=== PATIENT | male | born 1985 | race Two or more races ===

== ENCOUNTER 2024-01-26 21:48 | Emergency (ER) | payer MEDICAID, OTHER ==
[~2024-01-26] VITALS: Ht 172.7 cm; Wt 100.0 kg
--- NOTE | 2024-01-26 22:27 | ED.PDOC ---
Psychiatric HPI Comments 38-year-old male who came to ER for abdominal pain. Patient states he has been having abdominal pain for the entire day. Patient had an argument with his earlier, and at about 7:00 p.m. he intentionally took handfuls of cough, cold, throat medications, along with handful of unrecalled blood pressure medications. Since then, abdominal pain appears to worsen. Denies any nausea or vomiting. Patient is a very poor historian. He however denies being suicidal, states that he just wants to harm himself. Denies any previous history of suicide attempts Chief Complaint: Abdominal pain Time Seen by MD: 22:25 Reviewed Notes: Nurses Notes Mode of Arrival: Ambulatory Severity: Unable to Care for Self, Unable to Control Self Severity of Pain: Moderate Severity of Mental Status: Moderate Severity of Symptoms: Moderate Timing: Hours Duration: Since onset Presents with: Depression, Anxiety, Unclear Thinking, Bizarre Behavior, Suicidal Ideation Attempt: Ingestion Ingestion: Intentional, Multiple, Ingestion Observed, Drug(s) Ingested (Unknown), Amount Ingested (Unknown) Circumstance: Medical Clearance Stressors: Family, Relationships History of: None Associated signs and symptoms: Depression, Anxiety, Confusion Past Medical History PAST MEDICAL HISTORY: HTN Surgical History: Denies all surgeries Family History Family History: Reviewed,noncontributory to illness Social History Smoker: Non-Smoker Alcohol: Denies ETOH Use Drugs: Denies Drug Use Lives In: Home Constitutional: denies: chills, diaphoresis, fatigue, fever, malaise, sweats, weakness, others EENTM: denies: blurred vision, double vision, ear bleeding, ear discharge, ear drainage, ear pain, ear ringing, eye pain, eye redness, hearing loss, mouth pain, mouth swelling, nasal discharge, nose bleeding, nose congestion, nose pain, photophobia, tearing, throat pain, throat swelling, voice changes, others Respiratory: denies: cough, hemoptysis, orthopnea, SOB at rest, shortness of breath, SOB with excertion, stridor, wheezing, others Cardiovascular: denies: chest pain, dizzy spells, diaphoresis, Dyspnea on exertion, edema, irregular heart beat, left arm pain, lightheadedness, palpitations, PND, syncope, others Gastrointestinal: reports: abdominal pain; denies: abdomen distended, blood streaked bowels, constipated, diarrhea, dysphagia, difficulty swallowing, hematemesis, melena, nausea, poor appetite, poor fluid intake, rectal bleeding, rectal pain, vomiting, others Genitourinary: denies: burning, dysuria, flank pain, frequency, hematuria, incontinence, penile discharge, penile sore, pain, testicle pain, testicle swelling, urgency, others Neurological: denies: dizziness, fainting, headache, left sided numbness, left sided weakness, numbness, paresthesia, pre-existing deficit, right sided numbness, right sided weakness, seizure, speech problems, tingling, tremors, weakness, others Musculoskeletal: denies: back pain, gout, joint pain, joint swelling, muscle pain, muscle stiffness, neck pain, others Integumetry: denies: bruises, change in color, change in hair/nails, dryness, laceration, lesions, lumps, rash, wounds, others Allergic/Immunocompromised: denies: Difficulty Healing, Frequent Infections, Hives, Itching, others Hematologic/Lymphatic: denies: anemia, blood clots, easy bleeding, easy bruising, swollen glands, others Endocrine: denies: excessive hunger, excessive sweating, excessive thirst, excessive urination, flushing, intolerance to cold, intolerance to heat, unexplained weight gain, unexplained weight loss, others Psychiatric: reports: anxiety; denies: bipolar disorder, depression, hopeless, panic disorder, schizophrenia, sleepless, suicidal, others Physical Exam General Appearance: No Apparent Distress, Normal HEENT: Normal ENT Inspection, Pharynx Normal, TMs Normal Neck: Full Range of Motion, Non-Tender, Normal, Normal Inspection Respiratory: Chest Non-Tender, Lungs Clear, No Accessory Muscle Use, No Respi ratory Distress, Normal Breath Sounds Cardiovascular: No Edema, No JVD, No Murmur, No Gallop, Normal Peripheral Pulses, Regular Rate/Rhythm Breast Exam: Deferred Gastrointestinal: No Organomegaly, Non Tender, No Pulsatile Mass, Normal Bowel Sounds, Soft Genitalia: Deferred Pelvic: Deferred Rectal: Deferred Extremities: No calf tenderness, Normal capillary refill, Normal inspection, Normal range of motion, Non-tender, No pedal edema Musculoskeletal : Apperance: Normal 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 Was a procedure done?: No Psych Differential Dx OD Differential Dx: Anxiety, Conversion Disorder, Depression, Drug Overdose, Intentional, Hallucinations, Panic Disorder, Personality Disorder, Suicidal Attempt, Suicidal Gesture X-Ray, Labs, Meds, VS Vital Signs Date Time Temp Pulse Resp B/P (MAP) Pulse Ox O2 Delivery O2 Flow Rate FiO2 01/27/24 01:22 90 01/26/24 23:46 98.3 91 18 102/52 (69) 98 98.3 01/26/24 23:42 91 01/26/24 22:22 120 01/26/24 22:05 97.6 119 18 118/80 (93) 97 Lab Test 01/27/24 02:20 01/26/24 22:39 01/26/24 22:31 01/26/24 22:05 Range/Units Sodium Level 139 139 136-145 mmol/L Potassium Level 4.2 3.8 3.5-5.1 mmol/L Chloride Level 101 101 98-107 mmol/L Carbon Dioxide Level 31 35 H 20-31 mmol/L Anion Gap 7 3 L 5-15 Blood Urea Nitrogen 18 16 9-23 mg/dL Creatinine 1.70 H 1.39 H 0.700-1.30 mg/dL Glomerular Filtration Rate Calc 52 66 >90 mL/min BUN/Creatinine Ratio 10.6 11.5 10.0-20.0 Serum Glucose 145 H 134 H 74-106 mg/dL Calcium Level 9.9 9.7 8.7-10.4 mg/dL POC Glucose 122 H 70-106 mg/dl White Blood Count 9.2 4.4-10.8 10^3/uL Red Blood Count 6.05 H 4.5-5.90 10^6/uL Hemoglobin 19.3 H 13.5-17.5 g/dL Hematocrit 55.7 H 41.0-53.0 % Mean Corpuscular Volume 92.1 80.0-100.0 fL Mean Corpuscular Hemoglobin 31.9 28.0-32.0 pg Mean Corpuscular Hemoglobin Concent 34.7 32.0-36.0 g/dL Red Cell Distribution Width 13.1 11.8-14.3 % Platelet Count 199 140-450 10^3/uL Mean Platelet Volume 7.6 6.9-10.8 fL Neutrophils (%) (Auto) 66.3 37.0-80.0 % Lymphocytes (%) (Auto) 16.0 10.0-50.0 % Monocytes (%) (Auto) 15.7 H 0.0-12.0 % Eosinophils (%) (Auto) 1.6 0.0-7.0 % Basophils (%) (Auto) 0.4 0.0-2.0 % Neutrophils # (Auto) 6.1 1.6-8.6 10 ^3/uL Lymphocytes # (Auto) 1.5 0.4-5.4 10 ^3/uL Monocytes # (Auto) 1.4 H 0-1.3 10 ^3/uL Eosinophils # (Auto) 0.1 0-0.8 10 ^3/uL Basophils # (Auto) 0 0-0.2 10 ^3/uL Nucleated Red Blood Cells 0.1 % Salicylates Level < 3.0 -30 mg/dL Acetaminophen Level 4.0 L 10.0-20.0 UG/ML Plasma/Serum Blood Alcohol 5.0 <10 mg/dL Urine Color Yellow Yellow Urine Clarity Turbid H Clear Urine pH 5.5 5.0-9.0 Urine Specific [place] 1.029 1.001-1.035 Urine Protein 1+ H Negative Urine Ketones 1+ H Negative Urine Blood Trace H Negative /uL Urine Nitrite Negative Negative Urine Bilirubin Negative Negative Urine Urobilinogen Normal Negative mg/dL Urine Leukocyte Esterase Negative Negative /uL Urine RBC 2 0 - 3 /hpf Urine WBC 49 0 - 3 /hpf Urine Squamous Epithelial Cells Few <5 /hpf Urine Bacteria Few H None Seen /hpf Urine Hyaline Casts Many 0 - 2 /lpf Urine Granular Casts Mod 0 /lpf Urine Mucus Few None Seen Urine Glucose Normal Normal mg/dL Urine Opiates Screen Neg NEGATIVE Urine Fentanyl Screen Pending Urine Barbiturates Screen Neg NEGATIVE Urine Phencyclidine Screen Neg NEGATIVE Urine Amphetamines Screen Neg NEGATIVE Urine Benzodiazepines Screen Neg NEGATIVE Urine Cocaine Screen Neg NEGATIVE Urine Cannabinoids Screen Neg NEGATIVE Time of 1ST Reevaluation: 22:17 Reevaluation 1ST: Unchanged Patient Education/Counseling: Diagnosis, Treatment Family Education/Counseling: Diagnosis, Treatment Departure 1 Departure Time of Disposition: 05:54 (Patient with an overdose attempt. He will go voluntarily to a psychiatric facility. Ligament for psychiatric placement.) Impression: Primary Impression: Suicide attempt by drug overdose Additional Impression: Depression Qualified Codes: F32.A - Depression, unspecified Disposition: 30 STILL A PATIENT Condition: Serious Critical Care Note Critical Care Time?: Yes (35 min-critical care time only) Stability Stability form required: No Heart Score Heart Score: Heart Score Response (Comments) Value History N/A 0 EKG N/A 0 Age N/A 0 Risk Factors N/A 0 Troponin N/A 0 Total 0 I personally scribed for MARIO PAGE MD ([email or web address]) on 01/26/24 at 22:27. Electronically submitted by Abe Gregg ([facility] MARIO PAGE MD Jan 26, 2024 22:27
[2024-01-26 22:48] LABS: Basophils # (auto) 0 10 ^3/uL (0-0.2); Lymphocytes # (auto) 1.5 10 ^3/uL (0.4-5.4); Monocytes # (auto) 1.4 10 ^3/uL (0-1.3); Red Cell Distribution Width 13.1 % (11.8-14.3)
[2024-01-26 22:50] LABS: Basophils % (auto) 0.4 % (0.0-2.0); Eosinophils # (auto) 0.1 10 ^3/uL (0-0.8); Eosinophils % (auto) 1.6 % (0.0-7.0); Hematocrit 55.7 % (41.0-53.0); Hemoglobin 19.3 g/dL (13.5-17.5); Mean Corpuscular Hemoglobin 31.9 pg (28.0-32.0); Mean Corpuscular Hgb Conc. 34.7 g/dL (32.0-36.0); Mean Corpuscular Volume 92.1 fL (80.0-100.0); Monocytes % (auto) 15.7 % (0.0-12.0); Neutrophils # (auto) 6.1 10 ^3/uL (1.6-8.6); Neutrophils % (auto) 66.3 % (37.0-80.0); Nucleated Red Blood Cells % 0.1 %; Platelet Count (auto) 199 10^3/uL (140-450); Red Blood Cells 6.05 10^6/uL (4.5-5.90); White Blood Cell 9.2 10^3/uL (4.4-10.8)
[2024-01-26 22:53] LABS: Chloride 101 mmol/L (98-107); Potassium 3.8 mmol/L (3.5-5.1); Sodium 139 mmol/L (136-145)
[2024-01-26 22:54] LABS: Anion Gap 3 (5-15); Calcium 9.7 mg/dL (8.7-10.4)
[2024-01-26 22:59] LABS: BUN/Creatinine Ratio 11.5 (10.0-20.0); Blood Urea Nitrogen 16 mg/dL (9-23); Carbon Dioxide 35 mmol/L (20-31)
[2024-01-26 23:26] LABS: Glucose 134 mg/dL (74-106)
[2024-01-27 01:31] LABS: Salicylate < 3.0 mg/dL (-30)
[2024-01-27 03:21] LABS: Chloride 101 mmol/L (98-107); Potassium 4.2 mmol/L (3.5-5.1); Sodium 139 mmol/L (136-145)
[2024-01-27 03:22] LABS: Anion Gap 7 (5-15); Calcium 9.9 mg/dL (8.7-10.4); Carbon Dioxide 31 mmol/L (20-31)
[2024-01-27 03:27] LABS: BUN/Creatinine Ratio 10.6 (10.0-20.0); Blood Urea Nitrogen 18 mg/dL (9-23)
[2024-01-27 03:35] LABS: Urine Bacteria FEW /hpf (None Seen); Urine Blood TRACE /uL (Negative); Urine Clarity Turbid (Clear); Urine Color Yellow (Yellow); Urine Hyaline Cast MANY /lpf (0 - 2); Urine Mucus FEW (None Seen); Urine Protein, UAD 1+ (Negative); Urine Specific Gravity 1.029 (1.001-1.035); Urine Urobilinogen Normal (Negative); Urine WBC 49 /hpf (0 - 3); Urine pH 5.5 (5.0-9.0)
[2024-01-27 03:37] LABS: Amphetamine Screen, Urine Neg (NEGATIVE); Barbiturate Scree,Urine Neg (NEGATIVE); Benzodiazephine Screen, Urine Neg (NEGATIVE); Cannabinoid Screen, Urine Neg (NEGATIVE); Cocaine Screen, Urine Neg (NEGATIVE); Opiate Scree,Urine Neg (NEGATIVE); Phencyclidine Screen, Urine Neg (NEGATIVE)
[2024-01-27 03:54] LABS: Glucose 145 mg/dL (74-106)
--- NOTE | 2024-01-27 05:31 | DVHINCON2 ---
Date of Service if different f: Jan 27, 2024 Time of Service: 05:03 Consult Consult Note PSYCHIATRY ED NEW CONSULT HPI: 38 yo M pt with unclear PPH presents to ED BIB for safety, psychiatric stabilization and possible med initiation in setting of intentional drug OD. Psychiatry consulted for safety evaluation and recommendations in context of current presentation Per pt, reports getting into earlier verbal argument with spouse over fertility treatments and as result, intentionally ingested ~ 10 tabs of Lisinopril 10 mg, 25 tabs of Tessalon 100 mg, and 12 tabs of Naproxen 375 mg - states "i didn't feel appreciated by her so it was a desperate attempt to catch her attention and get her support". Pt states ingestion was out of impulse and admits to self harm behavior but denies ingestion as suicide attempt. Pt appears to minimizing severity of attempt, merely stating "i won't do it again" Currently denies depressed mood, hopelessness, helplessness, isolation, negative thoughts, loss of interest, or anhedonia. Denies anxiety/panic/OCD/PTSD sym ptoms. Sleep/appetite/energy/conc relatively WNL. Adamantly denies SI/HI. Denies AVH/paranoia/catatonic/perceptual disturbances/personality changes. No overt manic, psychotic, major depressive, cognitive, dissociative phenomena, panic, or somatic symptoms noted. Appears somewhat future oriented/goal directed. Denies acute psychosocial stressors. Pt currently does not have psychiatrist/therapist out in community. Currently not on any psychotropic agents. No prior psych med trials. Denies ETOH, THC or IDU Employed at [employer], lives with /children, some support system noted (immediate family). Unknown trauma hx. Unknown FH. No acute medical issues, hx of seizures/TBI, or recent head injuries, NKDA Does not have hx of suicide attempts, SIB/PSG, or prior psych hospitalizations/5150. Denies history of violence, unprovoked aggression, or assaultive behaviors. Denies recent hx of impulsivity, attention seeking behaviors, anger outbursts, emotional dysregulation, mood reactivity or engaging in risky behaviors. Does not have access to firearms. Currently denies SI/HI. No safety concerns noted during encounter. MSE: General Appearance/Behavior: Alert and awake; appears stated age, well developed, fair grooming and hygiene; calm and cooperative, fair eye contact, no PMA/PMR Speech: coherent, rrr Thought Process: linear, logical, concrete, appears goal-directed, possibly minimizing symptoms Thought Content: Abnormal Thoughts and Perceptions: None Homicidality / Violent Thoughts: None Suicidality: adamantly denies SI Hallucinations: denies AVH Delusions: denies paranoia, persecutory, or grandiose delusions Obsessions /compulsions : None Judgment and Insight: questionable judgment with marginally fair insight Mood & Affect: "okay" with mood-congruent, appropriate Orientation: oriented to person, place, time Attention/Concentration: appears intact Memory: grossly intact Language: no unusual or inappropriate language Assessment: 38 yo M pt with unclear PPH presents to ED BIB for safety, psychiatric stabilization and possible med initiation in setting of intentional drug OD. Currently denies SI/HI/AVH. However intentionally ingested ~ 10 tabs of Lisinopril 10 mg, 25 tabs of Tessalon 100 mg, and 12 tabs of Naproxen 375 mg out of impulse - admits to self harm behavior but denies ingestion as suicide attempt. Pt appears to minimizing severity of attempt, merely stating "i won't do it again", cannot readily identify any protective factors Thus recommend inpatient psychiatry admission for further safety and psychiatric stabilization. Pt willing to transfer to inpt psych hospitalization voluntarily after lengthy discussion Primary Diagnosis: Adjustment disorder with mixed emotions and disturbance of conduct Recommend vol transfer to inpt psych facility for higher level of care 1:1 sitter is recommended Obtain collateral info from external sources when available Defer any psychotropic med initiation to accepting inpt psych facility If patient later refuses voluntary hospitalization or if no voluntary beds are available, please reconsult telepsych services to evaluate for 5150 hold. Reconsult telepsych services if pt requests to be discharged from ED prior to transfer Pt verbalized understanding and is receptive to above tx plan This case was discussed with ED nurse/provider and all parties in agreement with above tx plan Eric May MD Plan discussed with: Patient ERIC MAY MD Jan 27, 2024 05:31
[2024-01-27] MEDS: SODIUM CHLORIDE 0.9% 1,000 ML IV ONE (11:42)
[2024-01-27 12:15] LABS: Chloride 103 mmol/L (98-107); Potassium 3.8 mmol/L (3.5-5.1); Sodium 140 mmol/L (136-145)
[2024-01-27 12:16] LABS: Anion Gap 7 (5-15); Carbon Dioxide 30 mmol/L (20-31)
[2024-01-27 12:17] LABS: Calcium 9.3 mg/dL (8.7-10.4)
[2024-01-27 12:22] LABS: BUN/Creatinine Ratio 14.5 (10.0-20.0)
[2024-01-27 12:25] LABS: Blood Urea Nitrogen 25 mg/dL (9-23); Glucose 170 mg/dL (74-106)
[2024-01-27 18:49] LABS: Chloride 106 mmol/L (98-107); Potassium 3.9 mmol/L (3.5-5.1); Sodium 143 mmol/L (136-145)
[2024-01-27 18:50] LABS: Anion Gap 8 (5-15); Calcium 9.3 mg/dL (8.7-10.4); Carbon Dioxide 29 mmol/L (20-31)
[2024-01-27 18:55] LABS: BUN/Creatinine Ratio 16.5 (10.0-20.0); Blood Urea Nitrogen 22 mg/dL (9-23); Glucose 98 mg/dL (74-106)
--- NOTE | 2024-01-28 05:57 | ED.PDOC ---
Departure 1 Departure Time of Disposition: 05:57 (Patient is still pending placement. He is resting comfortably with no acute complaints at this time.) Impression: Primary Impression: Suicide attempt by drug overdose Additional Impression: Depression Qualified Codes: F32.A - Depression, unspecified Disposition: 30 STILL A PATIENT Condition: Serious MARIO PAGE MD Jan 28, 2024 05:57
[2024-01-28 08:25] VITALS: PULSE 66; RESP 16; O2SAT 100
[2024-01-28] MEDS: cefTRIAXone 1GM/50ML D5W 50 ML IV ONE (08:31)
--- NOTE | 2024-01-28 19:38 | ED.PDOC ---
Departure 1 Departure Time of Disposition: 19:38 (Patient accepted to [facility] unit. Patient is still resting comfortably) Impression: Primary Impression: Suicide attempt by drug overdose Additional Impression: Depression Qualified Codes: F32.A - Depression, unspecified [facility]position: [facility] Condition: Serious MARIO PAGE MD Jan 28, 2024 19:38
[2024-01-29 09:37] VITALS: PULSE 80; RESP 14; O2SAT 95
--- NOTE | 2024-01-29 14:46 | ECG ---
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
[2024-01-29 21:00] VITALS: PULSE 91; RESP 18; O2SAT 93
--- NOTE | 2024-01-29 23:07 | ED.PDOC ---
Departure 1 Departure Time of Disposition: 19:38 (Patient is resting comfortably and still awaiting placement.) Impression: Primary Impression: Suicide attempt by drug overdose Additional Impression: Depression Qualified Codes: F32.A - Depression, unspecified Disposition: 30 STILL A PATIENT Condition: Serious MARIO PAGE MD Jan 29, 2024 23:07
[2024-01-30 08:28] VITALS: BP 130/95; PULSE 77; RESP 17; TEMP 98; O2SAT 95
--- NOTE | 2024-01-30 09:30 | TELE.CONS ---
01/30/24914 The patient was seen and evaluated at [facility] via telepsychiatry platform. 38 yr old male was admitted on 01/25 after an overdose on 1000mg Lisinopril/1250mg HCTZ, 2500mg Tessalon [place] and 4.5gm Naprosyn. He was seen by psychiatrist Dr May on 01/29 and recommended for inpatient hospitalization. He had an argument about fertility issues with his . He plans to get counseling from his cheondoism dye can operator, Pastor Gonzales who is a family counseling. He has been 15 years to who is 41. He has two children (13&11). He had a vasectomy two years ago and didn't feel supported by his because his didn't go to the surgery with him. He said on Thursday 01/25 he was feeling sick and his was nitpicking him about stuff he didn't do around the house. When he started arguing with her, this made him feel impulsive and took the pills. He has no past suicide attempts. He stated his has been supportive of him while he has been in the ED now. He feels remorse for the action and does not want to do that again. He lives in [place] with his and two children. He feels comfortable returning home. He denied having SI/HI/AVH. MSE: Alert, oriented male sitting in chair cooperative and forthcoming speech-regular rate, rhythm Mood-"good, upbeat" Affect-,euthymic congruent Tht process-linear and goal directed Tht Content- Denied having suicidal or homicidal ideation, plan or intent. denied AVH Insight-fair Judgment-good Impulse control-intact Diagnosis: ADJUSTMENT DISORDER WITH MIXED DISTURBANCE OF EMOTION AND CONDUCT Assessment: This 38 yr old male appears to suffer from adjustment disorder and is no longer suicidal. He has arranged to have marital therapy with his dye can operator. He does not warrant further psychiatric hospitalization. Plan: 1. The patient is psychologically cleared for discharge. 2. Legal-voluntary 3. Medications- no medications indicated at this time. Follow up with pastor Gonzales for counseling. 4. Case discussed with ED physician, Dr Gatica. 5. Please contact psychiatry if further follow up or reevaluation is desired. Yes KENYA OWEN MD Jan 30, 2024 09:30
--- NOTE | 2024-01-30 13:46 | ECG ---
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
--- NOTE | 2024-01-30 13:47 | ECG ---
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
== END 2024-01-30 09:43 | disposition still patient (30) ==
LOC: ER 21:48 → EEVIPCON 21:48 → ER 01-30 09:43
DX: T50.902A Poisoning by unspecified drugs, medicaments and biological substances, intentional self-harm, initial encounter (principal); F32.A Depression, unspecified; I10 Essential (primary) hypertension; Z79.899 Other long term (current) drug therapy; Y92.89 Other specified places as the place of occurrence of the external cause
CPT/HCPCS: 36415; 36600; 80048; 80307; 80320; 80329; 81001; 82805; 82962; 85025; 93005; 96361; 96365; 99285; J0696; J7030; 96360